=== PATIENT | female | born 1970 | race Caucasian/White ===

== ENCOUNTER → 2023-06-27 | Outpatient (CLI) | payer BC ==
--- NOTE | 2023-06-28 21:57 | MR ---
EXAMINATION TYPE: MR liver wo/w con DATE OF EXAM: 06/27/2023 10:54 AM CLINICAL INDICATION:Female, 53 years old with history of R93.2 ABNORMAL FINDINGS ON DX IMAGING; [facility], COMPARISON: Gallbladder ultrasound 06/08/2023. TECHNIQUE: Multiplanar multi-sequence imaging was performed without contrast. Post contrast imaging was performed. Post IV contrast subtraction images were also submitted for review. IV Contrast: 10 cc Gadavist. FINDINGS: LOWER CHEST: No gross irregularity. ABDOMEN Liver: No evidence for hepatic steatosis or cirrhosis. Area seen on prior ultrasound near the right k idney was carefully evaluated there is no abnormal signal within the liver. Finding suggests artifact on prior ultrasound. No abnormal postcontrast enhancement. Gallbladder and Bile ducts: No evidence for ductal dilation, or biliary stricture or evidence of chol edocholithiasis. The gallbladder is within normal limits. Pancreas: No ductal dilation. No evidence for solid mass. Spleen: Normal for size. Adrenal glands: Unremarkable. Kidneys: No evidence for obstructive uropathy. No suspicious renal masses. Simple appearing right ayla al cyst without postcontrast enhancement measuring 6 mm. Stomach and Bowel: No evidence for bowel wall thickening or evidence for obstruction.. Peritoneum: No evidence of pneumoperitoneum or free fluid. Vasculature: No aortic aneurysm. Musculoskeletal: The osseous structures appear intact. Lymph Nodes: No gross evidence for lymphadenopathy. Abdominal wall: Unremarkable. IMPRESSION: No evidence of abdominal mass. Area on prior ultrasound is felt to represent artifact from sonograph er technique. No suspicious masses within the liver. The liver has a normal appearance.
== END | disposition home or self-care (01) ==
LOC: RADMRIMAIN 09:35
PROVIDERS: ATTEND Family Medicine
DX: R93.2 Abnormal findings on diagnostic imaging of liver and biliary tract (principal); R10.84 Generalized abdominal pain; R19.4 Change in bowel habit
CPT/HCPCS: 74183; A9585